=== PATIENT | male | born 1930 | race Caucasian/White ===

== ENCOUNTER 2019-03-07 12:56 | Inpatient (IN) | payer OTHER, MEDICARE ==
[2019-03-07 13:47] LABS: HEMATOCRIT 22.9 % (35.4-49); HEMOGLOBIN 7.5 GM/dL (11.7-16.9); MCH 31.1 pg (25.7-33.7); MCHC 32.6 g/dl (32.0-35.9); MEAN CELL VOLUME 95.3 fl (80-96); MEAN PLT VOLUME 7.8 fl (7.5-11.1); PLATELET COUNT 170 K/MM3 (134-434); RDW 15.8 % (11.9-15.9); WHITE BLOOD COUNT 3.4 K/mm3 (4.0-10.0)
[2019-03-07 14:12] LABS: BLOOD UREA NITROGEN 23.9 mg/dL (7-18); CALCIUM 8.6 mg/dL (8.5-10.1); CREATININE 1.5 mg/dL (0.55-1.3); POTASSIUM 4.2 mmol/L (3.5-5.1)
[2019-03-07] MEDS ORDERED: NITROGLYCERIN SUBLINGUAL 1/150 0.4 MG TAB SL PRN (15:06)
--- NOTE | 2019-03-07 18:43 | HP ---
Admitting History and Physical - Primary Care Physician PCP: Humberto Mcpherson (]) - Admission Chief Complaint: Weakness, LEONARD, anemia History of Present Illness: Pt with known advanced CHF, CRF came to the office c/o weakness and LEONARD with short distances (30 feet); office labs were consistant with anemia (Hb of 7.4); pt was admitted to symptomatic anemia requiring blood transfusion. History Source: Patient Limitations to Obtaining History: No Limitations - Past Medical History Cardiovascular: Yes: CAD, CHF, HTN, Hyperlipdemia Musculoskeletal: Yes: Osteoarthritis - Past Surgical History Past Surgical History: Yes: CABG, Joint Replacement Additional Past Surgical History: s/p Defibrilator/Pacemaker placement. 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 Tonsillectomy - Smoking History Smoking history: Former smoker Have you smoked in the past 12 months: No Aproximately how many cigarettes per day: 0 - Alcohol/Substance Use Hx Alcohol Use: No Home Medications - Allergies Allergies/Adverse Reactions: Allergies Allergy/AdvReac Type Severity Reaction Status Date / Time No Known Drug Allergies Allergy Verified 04/03/14 15:21 - Home Medications Home Medications: Ambulatory Orders Nitroglycerin Sublingual [Nitrostat -] 0.4 mg SL PRN PRN 09/28/12 Rosuvastatin [Crestor -] 40 mg PO HS 09/28/12 Aspirin [ASA -] 81 mg PO DAILY 03/07/19 Carvedilol [Coreg -] 12.5 mg PO BID 03/07/19 Cholecalciferol (Vitamin D3) [Vitamin D3] 2,000 unit PO DAILY 03/07/19 Ezetimibe 10 mg PO Q2D 03/07/19 Isosorbide Mononitrate [Isosorbide Mononitrate ER] 30 mg PO DAILY 03/07/19 Multivitamin [One-Daily Multi-Vitamin] 1 each PO DAILY 03/07/19 Ranolazine [Ranexa -] 1,000 mg PO BID 03/07/19 Sacubitril/Valsartan [Entresto 24 mg-26 mg Tablet] 1 each PO BID 03/07/19 Family Medical History Family Hx Cardiac Disorders: Mother (DM), Father (CHF), Brother (X 2, each with Heart disease.) Review of Systems - Review of Systems Constitutional: denies: Chills, Fever Eyes: denies: Blurred Vision, Double Vision HENT: denies: Epistaxis, Nasal Congestion, Throat Pain Neck: denies: Pain on Movement, Stiffness Cardiovascular: denies: Chest Pain, Edema, Palpitations Respiratory: reports: SOB on Exertion. denies: Cough, Wheezing Gastrointestinal: reports: Vomiting. denies: Abdominal Pain, Nausea Genitourinary: reports: Burning, Discharge Musculoskeletal: reports: Muscle Weakness. denies: Back Pain, Muscle Cramps Integumentary: reports: Rash. denies: Bruising Neurological: reports: Numbness, Tremors. denies: Confusion Endocrine: reports: Intolerance to Cold. denies: Excessive Sweating Hematology/Lymphatic: reports: Excessive Bleeding. denies: Easily Bruised Psychiatric: denies: Anxiety, Depression Physical Examination Vital Signs: Vital Signs Temperature 97.9 F 03/07/19 13:34 Pulse Rate 65 03/07/19 13:34 Respiratory Rate 18 03/07/19 13:34 Blood Pressure 134/72 03/07/19 13:34 O2 Sat by Pulse Oximetry (%) 97 03/07/19 13:59 Constitutional: Yes: No Distress, Calm Eyes: Yes: Conjunctiva Clear, EOM Intact HENT: No: Epistaxis, Pharyngeal Erythema, Rhinnorhea Neck: Yes: Trachea Midline, Lymphadenopathy Cardiovascular: Yes: Regular Rate and Rhythm, S1, S2 Respiratory: Yes: Regular, CTA Bilaterally, Other (Left base atelecatsis, cleared with deep inspiration) Gastrointestinal: Yes: Normal Bowel Sounds, Soft. No: Palpable Mass, Tenderness ...Rectal Exam: Yes: Deferred Renal/: No: CVA Tenderness - Left, CVA Tenderness - Right Musculoskeletal: No: Back Pain, Joint Swelling Extremities: No: Cold, Cyanosis Edema: No Integumentary: Yes: Bruising, Rash Neurological: Yes: Alert, Oriented ...Motor Strength: WNL Psychiatric: Yes: Alert, Oriented Labs: CBC, BMP 03/07/19 13:35 03/07/19 13:35 Problem List - Problems (1) Anemia Code(s): D64.9 - ANEMIA, UNSPECIFIED (2) Leukopenia Code(s): D72.819 - DECREASED WHITE BLOOD CELL COUNT, UNSPECIFIED (3) Dyspnea on effort Code(s): R06.09 - OTHER FORMS OF DYSPNEA (4) CHF (congestive heart failure) Code(s): I50.9 - HEART FAILURE, UNSPECIFIED (5) CRF (chronic renal failure) Code(s): N18.9 - CHRONIC KIDNEY DISEASE, UNSPECIFIED (6) HLD (hyperlipidemia) Code(s): E78.5 - HYPERLIPIDEMIA, UNSPECIFIED Assessment/Plan Transfuse PRBC, slow, to prevent CHF execarbation. Lasix IV s/p PRBC and f/u renal function Cardio consult Heme Consult. AM labs.
--- NOTE | 2019-03-07 20:36 | CONSULT ---
Consult - text type - Consultation Consultation Note: 88 y/o Pt with known advanced CHF, CRF came to the office c/o weakness and LEONARD with short distances (30 feet); Also c/o severe fatifue Denies overt bleeding Last colonoscopy -- 8 yrs. back On asa Getting PRBCs for symptomatic anemia in the 7s - Past Medical History Cardiovascular: Yes: CAD, CHF, HTN, Hyperlipdemia Musculoskeletal: Yes: Osteoarthritis - Past Surgical History Past Surgical History: Yes: CABG, Joint Replacement Additional Past Surgical History: s/p Defibrilator/Pacemaker placement. 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 Tonsillectomy - Smoking History Smoking history: Former smoker - Allergies Allergies/Adverse Reactions: Allergies Allergy/AdvReac Type Severity Reaction Status Date / Time No Known Drug Allergies Allergy Verified 04/03/14 15:21 - Home Medications Home Medications: Ambulatory Orders Nitroglycerin Sublingual [Nitrostat -] 0.4 mg SL PRN PRN 09/28/12 Rosuvastatin [Crestor -] 40 mg PO HS 09/28/12 Aspirin [ASA -] 81 mg PO DAILY 03/07/19 Carvedilol [Coreg -] 12.5 mg PO BID 03/07/19 Cholecalciferol (Vitamin D3) [Vitamin D3] 2,000 unit PO DAILY 03/07/19 Ezetimibe 10 mg PO Q2D 03/07/19 Isosorbide Mononitrate [Isosorbide Mononitrate ER] 30 mg PO DAILY 03/07/19 Multivitamin [One-Daily Multi-Vitamin] 1 each PO DAILY 03/07/19 Ranolazine [Ranexa -] 1,000 mg PO BID 03/07/19 Sacubitril/Valsartan [Entresto 24 mg-26 mg Tablet] 1 each PO BID 03/07/19 Family Medical History Family Hx Cardiac Disorders: Mother (DM), Father (CHF), Brother (X 2, each with Heart disease.) Physical Examination Vital Signs: Last Vital Signs Temp Pulse Resp BP Pulse Ox 98.2 F 80 18 122/81 97 03/07/19 22:00 03/07/19 22:00 03/07/19 22:00 03/07/19 22:00 03/07/19 21:00 Cor: RSR, No murmurs, No gallops Lungs: Clear to P&A Abd: Soft, Normal bowel sounds, No organomegaly Ext:No significant edema Abnormal Lab Results 03/07/19 03/07/19 03/07/19 13:35 13:35 13:35 WBC 3.4 L RBC 2.40 L Hgb 7.5 L Hct 22.9 L Chloride 108 H BUN 23.9 H Creatinine 1.5 H Random Glucose 113 H Antibody Screen Positive H Crossmatch See Detail Assessment/Plan 88 y/o Pt with known advanced CHF, CRF came to the office c/o weakness and LEONARD with short distances (30 feet); Also c/o severe fatigue Denies overt bleeding Last colonoscopy -- 8 yrs. back On asa Getting PRBCs for symptomatic anemia of 7.5 anemia -- B12 /folte /TSH--normal multifactorial--- low iron saturation + chronic disease/CKD/CHF ? component of macrocytosis due to passive congestion from CHF check U/S liver ? marrow pathology -- MDS, given coexistent leukopenia---check flow/FISH/ cytogenetics Given low iron sat --- check ctool occult. Consider GI Consult. Will consider iv iron Leukopenia--passive congestion from CHF? ? marrow pathology Check f/ow/FISH/cytogenetics
[2019-03-07] MEDS ORDERED: PT OWN MED DRAWER 7, Y5N ONE (21:18)
[2019-03-07] MEDS: RANOLAZINE E.R. 1,000 MG TABLET (FP) PO SCH (21:41)
[2019-03-07] MEDS: CARVEDILOL 12.5 MG TABLET (FP) PO SCH (21:41)
[2019-03-07] MEDS ORDERED: ROSUVASTATIN CA 40 MG TABLET PO SCH (22:00)
[2019-03-07] MEDS: ROSUVASTATIN CA 20 MG TABLET (FP) PO SCH (22:18)
[2019-03-07] MEDS: SACUBITRIL/VALSARTAN 24 MG-26 MG TABLET PO SCH (22:19)
[2019-03-07] MEDS ORDERED: FUROSEMIDE 40 MG/4 ML INJECTABLE VIAL IVPB ONE (23:28)
[2019-03-08 06:41] LABS: HEMATOCRIT 24.7 % (35.4-49); HEMOGLOBIN 8.2 GM/dL (11.7-16.9); MCH 31.1 pg (25.7-33.7); MCHC 33.3 g/dl (32.0-35.9); MEAN CELL VOLUME 93.4 fl (80-96); MEAN PLT VOLUME 8.1 fl (7.5-11.1); PLATELET COUNT 152 K/MM3 (134-434); RBC 2.64 M/mm3 (4.00-5.60); RDW 15.4 % (11.9-15.9); WHITE BLOOD COUNT 3.4 K/mm3 (4.0-10.0)
[2019-03-08 07:04] LABS: CALCIUM 8.7 mg/dL (8.5-10.1); CREATININE 1.3 mg/dL (0.55-1.3)
--- NOTE | 2019-03-08 07:19 | PN ---
Progress Note (short form) - Note Progress Note: Chief Complaint: Events noted, notes reviewed, evaluation of progressive exertional dyspnea, increasing fatigue and tiredness History of Present Illness: Seen and examined on telemetry. Full consult dictated - Current Medication List Current Medications Aspirin (Asa -) 81 mg PO DAILY [facility] Carvedilol (Coreg -) 12.5 mg PO BID [facility] Last Admin: 03/07/19 21:41 Dose: 12.5 mg Ezetimibe (Zetia -) 10 mg PO Q2D [facility] Isosorbide Mononitrate (Imdur -) 30 mg PO DAILY [facility] Multivitamins/Minerals/Vitamin C (Tab-A-Vit -) 1 tab PO DAILY [facility] Nitroglycerin (Nitrostat -) 0.4 mg SL Q5M PRN PRN Reason: pain Ranolazine (Ranexa -) 1,000 mg PO BID [facility] Last Admin: 03/07/19 21:41 Dose: 1,000 mg Rosuvastatin Calcium (Crestor -) 40 mg PO HS [facility] Last Admin: 03/07/19 22:18 Dose: 40 mg Sacubitril/Valsartan (Entresto 24 Mg-26 Mg Tablet) 1 tab PO BID [facility] Last Admin: 03/07/19 22:19 Dose: 1 tab Review of Systems Constitutional: denies: Chills or Fever Cardiovascular: as noted above Respiratory: denies: Cough or Sputum Production Gastrointestinal: denies: Nausea, Vomiting, Diarrhea, Constipation or Abdominal Pain Genitourinary: denies: Dysuria Musculoskeletal: denies: Joint Pain Neurological: denies: Dizziness or Headache - Objective Vital Signs: Last Vital Signs Temp Pulse Resp BP Pulse Ox 98.4 F 82 18 119/72 97 03/08/19 06:00 03/08/19 06:00 03/08/19 06:00 03/08/19 06:00 03/07/19 21:00 Intake & Output 03/05/19 03/06/19 03/07/19 03/08/19 23:59 23:59 23:59 23:59 Intake Total 540 Balance 540 Weight 185 lb Neck: Supple Negative JVD No Bruit Respiratory: Clear to A&P Bilaterally Cardiovascular: S1 S2 Regular Rate Rhythm Occasional Ectopics Grade 2/6 systolic apical murmur Gastrointestinal: Soft Benign Normal Bowel Sounds Ext: Edema Labs: CBC, BMP 03/08/19 05:30 03/08/19 05:30 Assessment/Plan ASSESSMENT: 1. 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 Coronary artery disease status post coronary artery bypass grafting status post percutaneous coronary intervention stenting abnormal pharmacologic dipyridamole myocardial perfusion imaging study February 22, 2015 angina pectoris 3. Ventricular tachycardia post [employer], post device revision for pocket infection [employer] device 4. Mitral valve regurgitation mild to moderate in severity 5. Aortic valve regurgitation mild in severity 6. Tricuspid valve regurgitation mild in severity 7. 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 History of an abnormal hemoglobin A1c, normalized 9. Hypercholesterolemia 10. Anemia post-transfusion etiology of which is to be determined with no overt blood loss reported/history of neutropenia- persistent 11. History of traumatic subdural hematoma 12. History of a syncopal episode complicated by traumatic left femoral fracture post open reduction and internal fixation 13. History of traumatic right humeral head fracture post mechanical fall 14. Chronic kidney disease 15. History of degenerative joint disease PLAN: 1. Continue Carvedilol therapy, hemodynamics permitting 2. Continue Entresto therapy, hemodynamics permitting 3. Continue Imdur/hemodynamics permitting and Ranexa therapies 4. Continue Lasix therapy with caution and close monitoring of renal function 5. Continue Crestor and Zetia therapies 6. Continue Ecotrin therapy with caution 7. Evaluation of anemia as planned by hematology service, maintain hemoglobin equal or greater than 8.0, transfuse as needed with Lasix therapy utilization intravenously Nicole Samuels M.D.
[2019-03-08] MEDS ORDERED: PT OWN MED DRAWER 7, Y5N ONE ×4 (09:26→22:09)
[2019-03-08] MEDS: CARVEDILOL 12.5 MG TABLET (FP) PO SCH ×2 (09:33→22:13)
[2019-03-08] MEDS: RANOLAZINE E.R. 1,000 MG TABLET (FP) PO SCH ×2 (09:33→22:13)
[2019-03-08] MEDS: SACUBITRIL/VALSARTAN 24 MG-26 MG TABLET PO SCH ×2 (09:33→22:14)
[2019-03-08] MEDS: MULTIVITAMINS (DAILY MVI) TABLET (FP) PO SCH (09:34)
[2019-03-08] MEDS: ASPIRIN 81 MG CHEWABLE TABLETS PO SCH (09:34)
[2019-03-08] MEDS ORDERED: ISOSORBIDE MONONITRATE 30 MG TAB.SR.24H (FP) PO SCH (10:00)
--- NOTE | 2019-03-08 10:11 | PN ---
Progress Note, Physician - Current Medication List Current Medications: Active Medications Aspirin (Asa -) 81 mg PO DAILY [facility] Last Admin: 03/08/19 09:34 Dose: 81 mg Carvedilol (Coreg -) 12.5 mg PO BID [facility] Last Admin: 03/08/19 09:33 Dose: 12.5 mg Ezetimibe (Zetia -) 10 mg PO Q2D [facility] Isosorbide Mononitrate (Imdur -) 30 mg PO DAILY [facility] Multivitamins/Minerals/Vitamin C (Tab-A-Vit -) 1 tab PO DAILY [facility] Last Admin: 03/08/19 09:34 Dose: 1 tab Nitroglycerin (Nitrostat -) 0.4 mg SL Q5M PRN PRN Reason: pain Ranolazine (Ranexa -) 1,000 mg PO BID [facility] Last Admin: 03/08/19 09:33 Dose: 1,000 mg Rosuvastatin Calcium (Crestor -) 40 mg PO HS [facility] Last Admin: 03/07/19 22:18 Dose: 40 mg Sacubitril/Valsartan (Entresto 24 Mg-26 Mg Tablet) 1 tab PO BID [facility] Last Admin: 03/08/19 09:33 Dose: 1 tab - Objective Vital Signs: Vital Signs Temperature 98.4 F 03/08/19 06:00 Pulse Rate 82 03/08/19 06:00 Respiratory Rate 18 03/08/19 06:00 Blood Pressure 119/72 03/08/19 06:00 O2 Sat by Pulse Oximetry (%) 97 03/07/19 21:00 Labs: CBC, BMP 03/08/19 05:30 03/08/19 05:30 Problem List - Problems (1) Anemia Code(s): D64.9 - ANEMIA, UNSPECIFIED (2) Leukopenia Code(s): D72.819 - DECREASED WHITE BLOOD CELL COUNT, UNSPECIFIED (3) Dyspnea on effort Code(s): R06.09 - OTHER FORMS OF DYSPNEA (4) CHF (congestive heart failure) Code(s): I50.9 - HEART FAILURE, UNSPECIFIED (5) CRF (chronic renal failure) Code(s): N18.9 - CHRONIC KIDNEY DISEASE, UNSPECIFIED (6) HLD (hyperlipidemia) Code(s): E78.5 - HYPERLIPIDEMIA, UNSPECIFIED
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
[2019-03-08] MEDS: ISOSORBIDE MONONITRATE 30 MG TAB.SR.24H (FP) PO SCH (12:53)
[2019-03-08 15:08] VITALS: BMI 25.1
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
--- NOTE | 2019-03-08 15:12 | RAPID ---
Physical Examination Vital Signs: Vital Signs Temperature 98.1 F 03/08/19 13:40 Pulse Rate 61 03/08/19 13:40 Respiratory Rate 18 03/08/19 13:40 Blood Pressure 112/60 03/08/19 13:40 O2 Sat by Pulse Oximetry (%) 97 03/08/19 10:00 Labs: CBC, BMP 03/08/19 05:30 03/08/19 05:30 Rapid Response - Rapid Response Assessment: Rapid Response was called overhead. Rapid Team to Bedside. Patient had a mechanical fall as per interview. Denied any prodromal symptoms of chest pain, lightheadedness, dizziness, palpitations, shortness of breath, nausea, visual disturbances. Acknowledged that he slipped and fell upon exiting the bathroom and hit his head on the garbage can. See Fall Exam note for physical exam. Outcome: Patient to Head CT Patient to get EKG Fall risk precautions initiated Nursing to contact primary Dr. Humberto Mcpherson Recommendations/Interventions: Head CT EKG Fall Risk Precautions
[2019-03-08] MEDS ORDERED: FUROSEMIDE 40 MG/4 ML INJECTABLE VIAL IVPUSH ONE (17:30)
--- NOTE | 2019-03-08 18:32 | PN ---
Progress Note, Physician History of Present Illness: Pt w/o SOB, CP, palpaitations, Abd pain. Pt just finished second unit of PRBC. Events noticed; pt stated that was walking and tripped in the garbage can and fell; he hit his head in the chair (head CT scan was negative for bleed) - Current Medication List Current Medications: Active Medications Aspirin (Asa -) 81 mg PO DAILY [facility] Last Admin: 03/08/19 09:34 Dose: 81 mg Carvedilol (Coreg -) 12.5 mg PO BID [facility] Last Admin: 03/08/19 09:33 Dose: 12.5 mg Ezetimibe (Zetia -) 10 mg PO Q2D [facility] Isosorbide Mononitrate (Imdur -) 30 mg PO DAILY [facility] Last Admin: 03/08/19 12:53 Dose: 30 mg Multivitamins/Minerals/Vitamin C (Tab-A-Vit -) 1 tab PO DAILY [facility] Last Admin: 03/08/19 09:34 Dose: 1 tab Nitroglycerin (Nitrostat -) 0.4 mg SL Q5M PRN PRN Reason: pain Ranolazine (Ranexa -) 1,000 mg PO BID [facility] Last Admin: 03/08/19 09:33 Dose: 1,000 mg Rosuvastatin Calcium (Crestor -) 40 mg PO HS [facility] Last Admin: 03/07/19 22:18 Dose: 40 mg Sacubitril/Valsartan (Entresto 24 Mg-26 Mg Tablet) 1 tab PO BID [facility] Last Admin: 03/08/19 09:33 Dose: 1 tab - Objective Vital Signs: Vital Signs Temperature 97.9 F 03/08/19 17:03 Pulse Rate 64 03/08/19 17:03 Respiratory Rate 20 03/08/19 17:03 Blood Pressure 135/76 03/08/19 17:03 O2 Sat by Pulse Oximetry (%) 97 03/08/19 10:00 Constitutional: Yes: No Distress, Calm Cardiovascular: Yes: Regular Rate and Rhythm, S1, S2 Respiratory: Yes: Regular, CTA Bilaterally, Other (crackels at both bases) Gastrointestinal: Yes: Normal Bowel Sounds, Soft. No: Tenderness Edema: No Neurological: Yes: Alert, Oriented, Other (symmetric motor and sensory examination in UE/ LE/ face) Labs: CBC, BMP 03/08/19 05:30 03/08/19 05:30 Problem List - Problems (1) Anemia Code(s): D64.9 - ANEMIA, UNSPECIFIED Qualifiers: Iron deficiency anemia type: chronic blood loss (2) Leukopenia Code(s): D72.819 - DECREASED WHITE BLOOD CELL COUNT, UNSPECIFIED (3) Dyspnea on effort Code(s): R06.09 - OTHER FORMS OF DYSPNEA (4) CHF (congestive heart failure) Code(s): I50.9 - HEART FAILURE, UNSPECIFIED (5) CRF (chronic renal failure) Code(s): N18.9 - CHRONIC KIDNEY DISEASE, UNSPECIFIED (6) HLD (hyperlipidemia) Code(s): E78.5 - HYPERLIPIDEMIA, UNSPECIFIED Qualifiers: Hyperlipidemia type: pure hypercholesterolemia Qualified Code(s): E78.00 - Pure hypercholesterolemia, unspecified; E78.0 - Pure hypercholesterolemia (7) Fall Assessment/Plan: mechanical. Code(s): W19.XXXA - UNSPECIFIED FALL, INITIAL ENCOUNTER Assessment/Plan s/p 2 units of PRBC Lasix IV s/p PRBC and f/u renal function Cardio and hematology consults are appreciated. Pt's case was d/w Dr Laird. [facility]
--- NOTE | 2019-03-08 19:35 | PN ---
Progress Note (short form) - Note Progress Note: Patient seen and examined Tripped over garbage pail and trauma to right lateral forehead No chest pain or SOB Describes several months of progressive tiredness, fatigue , lightheadedness. Had dark color stools over this time period. On daily ASA-81 mg with occasional Advil for "aches and pains." No gross melena. Lab data on admission with Fe++ sat of 10% compatible with component of blood loss. Mild CKD - compatible with chronic disease . Low WBC with relative normal diff ( relative monocytosis on occasion) dates back to 2015 and 2017. Last colonoscopy years ago. Last Vital Signs Temp Pulse Resp BP Pulse Ox 97.5 F L 66 20 107/66 97 03/08/19 19:03 03/08/19 19:03 03/08/19 19:03 03/08/19 19:03 03/08/19 10:00 HEENT: AZAR, EOM Intact, 2 x2 bandage right lateral forehead Oropharynx: No thrush, No mucositis Neck: Supple Nodes: Without adenopathy Cor: RSR, No murmurs, No gallops Lungs: Clear to P&A Abd: Soft, Normal bowel sounds, No organomegaly testes descended, uncircumcised Ext:No significant edema Skin: No rashes, Integument intact CBC, BMP 03/08/19 05:30 03/08/19 05:30 Current Medications Generic Name Dose Route Start Last Admin Trade Name Freq PRN Reason Stop Dose Admin Aspirin 81 mg 03/08/19 10:00 03/08/19 09:34 Asa - PO 81 mg DAILY [facility] Administration Carvedilol 12.5 mg 03/07/19 22:00 03/08/19 09:33 Coreg - PO 12.5 mg BID [facility] Administration Ezetimibe 10 mg 03/09/19 10:00 Zetia - PO Q2D [facility] Isosorbide Mononitrate 30 mg 03/08/19 13:00 03/08/19 12:53 Imdur - PO 30 mg DAILY [facility] Administration Multivitamins/Minerals/Vitamin C 1 tab 03/08/19 10:00 03/08/19 09:34 Tab-A-Vit - PO 1 tab DAILY [facility] Administration Nitroglycerin 0.4 mg 03/07/19 15:06 Nitrostat - SL Q5M PRN pain Ranolazine 1,000 mg 03/07/19 22:00 03/08/19 09:33 Ranexa - PO 1,000 mg BID [facility] Administration Rosuvastatin Calcium 40 mg 03/07/19 22:00 03/07/19 22:18 Crestor - PO 40 mg HS [facility] Administration Sacubitril/Valsartan 1 tab 03/07/19 22:00 03/08/19 09:33 Entresto 24 Mg-26 Mg Tablet PO 1 tab BID [facility] Administration Impression: Anemia - component of blood loss (10% iron saturation) and likely chronic disease Normal B-12, folate, TSH, normal A/G ratio. Low WBC count dates back to 2016 and 2017 . Last colonoscopy years ago. Suggest: GI assessment Await Flow cytometry to evaluate for possible MDS Sono of liver and spleen ( CHF with passive congestion and secondary liver disease and congested spleen)
[2019-03-08] MEDS: ROSUVASTATIN CA 20 MG TABLET (FP) PO SCH (22:13)
[2019-03-09 06:54] LABS: HEMATOCRIT 25.6 % (35.4-49); HEMOGLOBIN 8.8 GM/dL (11.7-16.9); MCH 30.9 pg (25.7-33.7); MCHC 34.2 g/dl (32.0-35.9); MEAN CELL VOLUME 90.2 fl (80-96); PLATELET COUNT 147 K/MM3 (134-434); RBC 2.84 M/mm3 (4.00-5.60); RDW 16.7 % (11.9-15.9); WHITE BLOOD COUNT 3.9 K/mm3 (4.0-10.0)
[2019-03-09 07:12] LABS: BLOOD UREA NITROGEN 21.9 mg/dL (7-18); CALCIUM 8.6 mg/dL (8.5-10.1); CREATININE 1.2 mg/dL (0.55-1.3); POTASSIUM 3.8 mmol/L (3.5-5.1)
[2019-03-09] MEDS ORDERED: EZETIMIBE 10 MG TABLET (FP) PO SCH (10:00)
[2019-03-09] MEDS ORDERED: POLYETHYLENE GLYCOL 3350 119 GM BTL PO ONE (10:13)
[2019-03-09] MEDS ORDERED: PT OWN MED DRAWER 7, Y5N ONE ×2 (10:29→20:58)
[2019-03-09] MEDS: RANOLAZINE E.R. 1,000 MG TABLET (FP) PO SCH ×2 (10:40→21:50)
[2019-03-09] MEDS: MULTIVITAMINS (DAILY MVI) TABLET (FP) PO SCH (10:40)
[2019-03-09] MEDS: ASPIRIN 81 MG CHEWABLE TABLETS PO SCH (10:40)
[2019-03-09] MEDS: CARVEDILOL 12.5 MG TABLET (FP) PO SCH ×2 (10:40→21:50)
[2019-03-09] MEDS: ISOSORBIDE MONONITRATE 30 MG TAB.SR.24H (FP) PO SCH (10:40)
[2019-03-09] MEDS: SACUBITRIL/VALSARTAN 24 MG-26 MG TABLET PO SCH ×2 (10:40→21:51)
--- NOTE | 2019-03-09 12:27 | PN ---
Progress Note, Physician History of Present Illness: Reports dark stools, denies abdominal pain, tolerated PT with walker assistance w/ improved LEONARD. - Current Medication List Current Medications: Active Medications Aspirin (Asa -) 81 mg PO DAILY [facility] Last Admin: 03/09/19 10:40 Dose: 81 mg Carvedilol (Coreg -) 12.5 mg PO BID [facility] Last Admin: 03/09/19 10:40 Dose: 12.5 mg Ezetimibe (Zetia -) 10 mg PO Q2D [facility] Last Admin: 03/09/19 10:40 Dose: 10 mg Isosorbide Mononitrate (Imdur -) 30 mg PO DAILY [facility] Last Admin: 03/09/19 10:40 Dose: 30 mg Multivitamins/Minerals/Vitamin C (Tab-A-Vit -) 1 tab PO DAILY [facility] Last Admin: 03/09/19 10:40 Dose: 1 tab Nitroglycerin (Nitrostat -) 0.4 mg SL Q5M PRN PRN Reason: pain Ranolazine (Ranexa -) 1,000 mg PO BID [facility] Last Admin: 03/09/19 10:40 Dose: 1,000 mg Rosuvastatin Calcium (Crestor -) 40 mg PO HS [facility] Last Admin: 03/08/19 22:13 Dose: 40 mg Sacubitril/Valsartan (Entresto 24 Mg-26 Mg Tablet) 1 tab PO BID [facility] Last Admin: 03/09/19 10:40 Dose: 1 tab - Objective Vital Signs: Vital Signs Temperature 98.4 F 03/09/19 05:03 Pulse Rate 72 03/09/19 05:03 Respiratory Rate 18 03/09/19 05:03 Blood Pressure 103/62 03/09/19 05:03 O2 Sat by Pulse Oximetry (%) 97 03/08/19 21:00 Constitutional: Yes: No Distress, Calm Neck: Yes: Supple Cardiovascular: Yes: Regular Rate and Rhythm Respiratory: Yes: Regular, CTA Bilaterally Gastrointestinal: Yes: Normal Bowel Sounds, Soft, Melena Edema: No Labs: CBC, BMP 03/09/19 05:30 03/09/19 05:30 Problem List - Problems (1) Anemia Code(s): D64.9 - ANEMIA, UNSPECIFIED Qualifiers: Iron deficiency anemia type: chronic blood loss (2) Dyspnea on effort Code(s): R06.09 - OTHER FORMS OF DYSPNEA (3) Chronic diastolic CHF (congestive heart failure) Code(s): I50.32 - CHRONIC DIASTOLIC (CONGESTIVE) HEART FAILURE (4) Coronary artery disease Code(s): I25.10 - ATHSCL HEART DISEASE OF [place] CORONARY ARTERY W/O ANG PCTRS Qualifiers: Coronary Disease-Associated Artery/Lesion type: [place] artery [place] vs. transplanted heart: [place] heart Associated angina: without angina Qualified Code(s): I25.10 - Atherosclerotic heart disease of [place] coronary artery without angina pectoris (5) Gastrointestinal bleed Code(s): K92.2 - GASTROINTESTINAL HEMORRHAGE, UNSPECIFIED Qualifiers: GI bleed type/associated pathology: melena Qualified Code(s): K92.1 - Melena (6) HLD (hyperlipidemia) Code(s): E78.5 - HYPERLIPIDEMIA, UNSPECIFIED Qualifiers: Hyperlipidemia type: pure hypercholesterolemia Qualified Code(s): E78.00 - Pure hypercholesterolemia, unspecified; E78.0 - Pure hypercholesterolemia (7) Hypertension Code(s): I10 - ESSENTIAL (PRIMARY) HYPERTENSION Qualifiers: Hypertension type: essential hypertension Qualified Code(s): I10 - Essential (primary) hypertension Assessment/Plan Sono of liver and spleen ( CHF with passive congestion and secondary liver disease and congested spleen) 1. 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 Coronary artery disease status post coronary artery bypass grafting status post percutaneous coronary intervention stenting abnormal pharmacologic dipyridamole myocardial perfusion imaging study February 22, 2015 angina pectoris 3. Ventricular tachycardia post [employer]D, post device revision for pocket infection [employer] device 4. Mitral valve regurgitation mild to moderate in severity 5. Aortic valve regurgitation mild in severity 6. Tricuspid valve regurgitation mild in severity 7. 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 History of an abnormal hemoglobin A1c, normalized 9. Hypercholesterolemia 10. Anemia post-transfusion etiology of which is to be determined suspect UGI loss with melena/history of neutropenia- persistent 11. History of traumatic subdural hematoma 12. History of a syncopal episode complicated by traumatic left femoral fracture post open reduction and internal fixation 13. History of traumatic right humeral head fracture post mechanical fall 14. Chronic kidney disease 15. History of degenerative joint disease PLAN: 1. Continue Carvedilol 12.5 bid, hemodynamics permitting 2. Continue Entresto 24/26 bid, hemodynamics permitting 3. Continue Imdur 30 qd hemodynamics permitting and Ranexa 1000 bid 4. Continue Lasix as needed with caution and close monitoring of renal function 5. Continue Crestor 40 qhs and Zetia 10 qod 6. Continue Ecotrin 81 qd with caution 7. Evaluation of anemia as planned by hematology service, maintain hemoglobin equal or greater than 8.0, transfuse as needed with Lasix therapy utilization intravenously, await flow cytometry to evaluate for possible MDS 8. GI input regarding EGD, PPI
--- NOTE | 2019-03-09 12:39 | EKG ---
Test Reason : Blood Pressure : / mmHG Vent. Rate : 067 BPM Atrial Rate : 067 BPM P-R Int : 116 ms QRS Dur : 174 ms QT Int : 528 ms P-R-T Axes : 046 078 070 degrees QTc Int : 557 ms Atrial-sensed ventricular-paced rhythm WITH FREQUENT PREMATURE VENTRICULAR COMPLEXES Biventricular pacemaker detected ABNORMAL ECG WHEN COMPARED WITH ECG OF 05-APR-2014 08:33, PREMATURE VENTRICULAR COMPLEXES ARE NOW PRESENT VENT. RATE HAS DECREASED BY 5 BPM Confirmed by CARA DURHAM, MAGDY ([id number]) on 03/09/2019 12:39:31 PM Referred By: Confirmed By:MAGDY MARROQUIN MD
--- NOTE | 2019-03-09 18:56 | PN ---
Progress Note, Physician History of Present Illness: Pt w/o SOB, CP, palpitations, abd pain, motor or sensory deficit in extremities. - Current Medication List Current Medications: Active Medications Aspirin (Asa -) 81 mg PO DAILY [facility] Last Admin: 03/09/19 10:40 Dose: 81 mg Carvedilol (Coreg -) 12.5 mg PO BID [facility] Last Admin: 03/09/19 10:40 Dose: 12.5 mg Ezetimibe (Zetia -) 10 mg PO Q2D [facility] Last Admin: 03/09/19 10:40 Dose: 10 mg Isosorbide Mononitrate (Imdur -) 30 mg PO DAILY [facility] Last Admin: 03/09/19 10:40 Dose: 30 mg Multivitamins/Minerals/Vitamin C (Tab-A-Vit -) 1 tab PO DAILY [facility] Last Admin: 03/09/19 10:40 Dose: 1 tab Nitroglycerin (Nitrostat -) 0.4 mg SL Q5M PRN PRN Reason: pain Ranolazine (Ranexa -) 1,000 mg PO BID [facility] Last Admin: 03/09/19 10:40 Dose: 1,000 mg Rosuvastatin Calcium (Crestor -) 40 mg PO HS [facility] Last Admin: 03/08/19 22:13 Dose: 40 mg Sacubitril/Valsartan (Entresto 24 Mg-26 Mg Tablet) 1 tab PO BID [facility] Last Admin: 03/09/19 10:40 Dose: 1 tab - Objective Vital Signs: Vital Signs Temperature 97.7 F 03/09/19 18:41 Pulse Rate 64 03/09/19 18:41 Respiratory Rate 20 03/09/19 18:41 Blood Pressure 126/65 03/09/19 18:41 O2 Sat by Pulse Oximetry (%) 97 03/09/19 09:00 Constitutional: Yes: No Distress, Calm HENT: Yes: Other (right temporal area hematoma). No: Epistaxis, Rhinnorhea Cardiovascular: Yes: Regular Rate and Rhythm, S1, S2 Respiratory: Yes: Regular, CTA Bilaterally. No: Rales Gastrointestinal: Yes: Normal Bowel Sounds, Soft. No: Palpable Mass, Tenderness Edema: No Neurological: Yes: Alert, Oriented, Other (symetric examination of UE/ LE/ face) Labs: CBC, BMP 03/09/19 05:30 03/09/19 05:30 Problem List - Problems (1) Anemia Code(s): D64.9 - ANEMIA, UNSPECIFIED Qualifiers: Iron deficiency anemia type: chronic blood loss (2) Leukopenia Code(s): D72.819 - DECREASED WHITE BLOOD CELL COUNT, UNSPECIFIED (3) Dyspnea on effort Code(s): R06.09 - OTHER FORMS OF DYSPNEA (4) CHF (congestive heart failure) Code(s): I50.9 - HEART FAILURE, UNSPECIFIED (5) CRF (chronic renal failure) Code(s): N18.9 - CHRONIC KIDNEY DISEASE, UNSPECIFIED (6) HLD (hyperlipidemia) Code(s): E78.5 - HYPERLIPIDEMIA, UNSPECIFIED Qualifiers: Hyperlipidemia type: pure hypercholesterolemia Qualified Code(s): E78.00 - Pure hypercholesterolemia, unspecified; E78.0 - Pure hypercholesterolemia Assessment/Plan s/p 2 units of PRBC, tolerated well Cardio and Hematology consults are appreciated. Pt to receive IV iron Liver and spleen US. Pt might decline GI evaluation/ workup this admission (importance was reviewed with patient) AM labs.
[2019-03-09] MEDS: ROSUVASTATIN CA 20 MG TABLET (FP) PO SCH (21:51)
[2019-03-10 07:12] LABS: HEMATOCRIT 27.9 % (35.4-49); HEMOGLOBIN 9.5 GM/dL (11.7-16.9); MCH 30.8 pg (25.7-33.7); MCHC 34.1 g/dl (32.0-35.9); MEAN CELL VOLUME 90.6 fl (80-96); PLATELET COUNT 182 K/MM3 (134-434); RBC 3.08 M/mm3 (4.00-5.60); RDW 16.5 % (11.9-15.9); WHITE BLOOD COUNT 4.3 K/mm3 (4.0-10.0)
[2019-03-10 07:47] LABS: BLOOD UREA NITROGEN 21.3 mg/dL (7-18); CALCIUM 8.6 mg/dL (8.5-10.1); CREATININE 1.4 mg/dL (0.55-1.3); POTASSIUM 4.2 mmol/L (3.5-5.1)
--- NOTE | 2019-03-10 10:32 | PN ---
Progress Note, Physician History of Present Illness: No further dark stools, denies abdominal pain, tolerated PT with walker assistance w/ improved LEONARD. Hgb stable post transfusion. - Current Medication List Current Medications: Active Medications Aspirin (Asa -) 81 mg PO DAILY [facility] Last Admin: 03/09/19 10:40 Dose: 81 mg Carvedilol (Coreg -) 12.5 mg PO BID [facility] Last Admin: 03/09/19 21:50 Dose: 12.5 mg Ezetimibe (Zetia -) 10 mg PO Q2D [facility] Last Admin: 03/09/19 10:40 Dose: 10 mg Isosorbide Mononitrate (Imdur -) 30 mg PO DAILY [facility] Last Admin: 03/09/19 10:40 Dose: 30 mg Multivitamins/Minerals/Vitamin C (Tab-A-Vit -) 1 tab PO DAILY [facility] Last Admin: 03/09/19 10:40 Dose: 1 tab Nitroglycerin (Nitrostat -) 0.4 mg SL Q5M PRN PRN Reason: pain Ranolazine (Ranexa -) 1,000 mg PO BID [facility] Last Admin: 03/09/19 21:50 Dose: 1,000 mg Rosuvastatin Calcium (Crestor -) 40 mg PO HS [facility] Last Admin: 03/09/19 21:51 Dose: 40 mg Sacubitril/Valsartan (Entresto 24 Mg-26 Mg Tablet) 1 tab PO BID [facility] Last Admin: 03/09/19 21:51 Dose: 1 tab - Objective Vital Signs: Vital Signs Temperature 98.1 F 03/10/19 06:00 Pulse Rate 78 03/10/19 06:00 Respiratory Rate 20 03/10/19 06:00 Blood Pressure 107/51 L 03/10/19 06:00 O2 Sat by Pulse Oximetry (%) 99 03/09/19 21:00 Constitutional: Yes: No Distress, Calm Neck: Yes: Supple Cardiovascular: Yes: Regular Rate and Rhythm Respiratory: Yes: Regular, CTA Bilaterally Gastrointestinal: Yes: Normal Bowel Sounds, Soft Edema: No Labs: CBC, BMP 03/10/19 05:35 03/10/19 05:35 Problem List - Problems (1) Anemia Code(s): D64.9 - ANEMIA, UNSPECIFIED Qualifiers: Iron deficiency anemia type: chronic blood loss (2) Dyspnea on effort Code(s): R06.09 - OTHER FORMS OF DYSPNEA (3) Chronic diastolic CHF (congestive heart failure) Code(s): I50.32 - CHRONIC DIASTOLIC (CONGESTIVE) HEART FAILURE (4) Coronary artery disease Code(s): I25.10 - ATHSCL HEART DISEASE OF [place] CORONARY ARTERY W/O ANG PCTRS Qualifiers: Coronary Disease-Associated Artery/Lesion type: [place] artery [place] vs. transplanted heart: [place] heart Associated angina: without angina Qualified Code(s): I25.10 - Atherosclerotic heart disease of [place] coronary artery without angina pectoris (5) Gastrointestinal bleed Code(s): K92.2 - GASTROINTESTINAL HEMORRHAGE, UNSPECIFIED Qualifiers: GI bleed type/associated pathology: melena Qualified Code(s): K92.1 - Melena (6) HLD (hyperlipidemia) Code(s): E78.5 - HYPERLIPIDEMIA, UNSPECIFIED Qualifiers: Hyperlipidemia type: pure hypercholesterolemia Qualified Code(s): E78.00 - Pure hypercholesterolemia, unspecified; E78.0 - Pure hypercholesterolemia (7) Hypertension Code(s): I10 - ESSENTIAL (PRIMARY) HYPERTENSION Qualifiers: Hypertension type: essential hypertension Qualified Code(s): I10 - Essential (primary) hypertension Assessment/Plan 03/09/2019 Mildly distended GB with multiple calculi 1. 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 Coronary artery disease status post coronary artery bypass grafting status post percutaneous coronary intervention stenting abnormal pharmacologic dipyridamole myocardial perfusion imaging study February 22, 2015 angina pectoris 3. Ventricular tachycardia post [employer]D, post device revision for pocket infection [employer] device 4. Mitral valve regurgitation mild to moderate in severity 5. Aortic valve regurgitation mild in severity 6. Tricuspid valve regurgitation mild in severity 7. 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 History of an abnormal hemoglobin A1c, normalized 9. Hypercholesterolemia 10. Anemia post 2 u PRBC transfusion etiology of which is to be determined suspect UGI loss with melena/history of neutropenia- persistent 11. History of traumatic subdural hematoma 12. History of a syncopal episode complicated by traumatic left femoral fracture post open reduction and internal fixation 13. History of traumatic right humeral head fracture post mechanical fall 14. Chronic kidney disease 15. History of degenerative joint disease 16. Cholelithiasis w/o cholecystitis PLAN: 1. Continue Carvedilol 12.5 bid, hemodynamics permitting 2. Continue Entresto 24/26 bid, hemodynamics permitting 3. Continue Imdur 30 qd hemodynamics permitting and Ranexa 1000 bid 4. Continue Lasix as needed with caution and close monitoring of renal function 5. Continue Crestor 40 qhs and Zetia 10 qod 6. Continue Ecotrin 81 qd with caution 7. Evaluation of anemia as planned by hematology service, maintain hemoglobin equal or greater than 8.0, transfuse as needed with Lasix therapy utilization intravenously, await flow cytometry to evaluate for possible MDS, IV iron 8. GI input regarding EGD, PPI
[2019-03-10] MEDS: CARVEDILOL 12.5 MG TABLET (FP) PO SCH (10:52)
[2019-03-10] MEDS: ASPIRIN 81 MG CHEWABLE TABLETS PO SCH (10:53)
[2019-03-10] MEDS: RANOLAZINE E.R. 1,000 MG TABLET (FP) PO SCH (10:53)
[2019-03-10] MEDS: SACUBITRIL/VALSARTAN 24 MG-26 MG TABLET PO SCH (10:53)
[2019-03-10] MEDS: MULTIVITAMINS (DAILY MVI) TABLET (FP) PO SCH (10:53)
[2019-03-10] MEDS: ISOSORBIDE MONONITRATE 30 MG TAB.SR.24H (FP) PO SCH (10:53)
[2019-03-10] MEDS ORDERED: IRON SUCROSE INJECTION 200 MG in SODIUM CHLORIDE 90 ML IVPB ONE (14:45)
--- NOTE | 2019-03-10 14:58 | DS ---
Physical Examination Vital Signs: Vital Signs Temperature 98.1 F 03/10/19 10:56 Pulse Rate 55 L 03/10/19 10:56 Respiratory Rate 18 03/10/19 10:56 Blood Pressure 103/51 L 03/10/19 10:56 O2 Sat by Pulse Oximetry (%) 98 03/10/19 09:00 Findings/Remarks: Pt w/o headache, SOB, CP, palpitations, abd pain. Constitutional: Yes: No Distress, Calm Cardiovascular: Yes: Regular Rate and Rhythm, S1, S2 Respiratory: Yes: Regular, CTA Bilaterally, Other (nocrackles). No: Rales Gastrointestinal: Yes: Normal Bowel Sounds, Soft. No: Tenderness Edema: LLE: Trace, RLE: Trace Neurological: Yes: Alert, Oriented Labs: CBC, BMP 03/10/19 05:35 03/10/19 05:35 Discharge Summary Reason For Visit: ANEMIA CHF WEAKNESS Current Active Problems Anemia (Acute) CHF (congestive heart failure) (Acute) CRF (chronic renal failure) (Acute) Dyspnea on effort (Acute) Fall (Acute) Leukopenia (Acute) Procedures: Principal: PRBC transfudsion ( X 2 units). IV iron infusion. Hospital Course: Pt with known CAD, s/p CABG, CHF came to Hospital after was found to have anemia (Hb7.4), LEONARD, weakness. Pt received 2 units of PRBC, and IV Lasix. Pt was seen in consult by Cardio (Dr Scott/ Geraldo), Heme (Dr Laird/ Anh); pt was recommended to see GI for further of Iron deficiency anemia; pt received IV Iron (Venofer 200 mg); pt to be DC'ed home with f/u with Heme (needs to continue IV Iron infusion), GI. Condition: Improved - Instructions Diet, Activity, Other Instructions: Resume home diet Disposition: HOME - Home Medications Comprehensive Discharge Medication List: Ambulatory Orders RX: Nitroglycerin Sublingual [Nitrostat -] 0.4 mg SL PRN PRN 09/28/12 RX: Rosuvastatin [Crestor -] 40 mg PO HS 09/28/12 Aspirin [ASA -] 81 mg PO DAILY 03/07/19 Carvedilol [Coreg -] 12.5 mg PO BID 03/07/19 Cholecalciferol (Vitamin D3) [Vitamin D3] 2,000 unit PO DAILY 03/07/19 Isosorbide Mononitrate [Isosorbide Mononitrate ER] 30 mg PO DAILY 03/07/19 Multivitamin [One-Daily Multi-Vitamin] 1 each PO DAILY 03/07/19 RX: Ezetimibe 10 mg PO Q2D 03/07/19 Ranolazine [Ranexa -] 1,000 mg PO BID 03/07/19 Sacubitril/Valsartan [Entresto 24 mg-26 mg Tablet] 1 each PO BID 03/07/19
[2019-03-10] MEDS ORDERED: PT OWN MED DRAWER 7, Y5N ONE (15:06)
--- NOTE | 2019-03-10 18:34 | PN ---
Progress Note (short form) - Note Progress Note: PAtient being discharged. Received iv venofer 200mg . Feels improved endurance Discussed lab results/U/S findings To follow up in the office regarding flocytometry and continuation of venofer
[2019-03-10 18:36] VITALS: BP 127/56; PULSE 61; TEMP 97.8
--- NOTE | 2019-03-11 17:26 | PATH ---
Surgical Pathology Report Patient Name: GEOVANNI FINE [facility]. Rec. #: [id number] /Age/Gender: 1930 (Age: 88) / M Account: [id number] Location: [address] [place] [address]/[facility] Taken: 03/08/2019 Received: 03/08/2019 Reported: 03/11/2019 Physicians: Anh Allen M.D. Specimen(s) Received PERIPHERAL BLOOD Clinical History Leukopenia Final Diagnosis COMPREHENSIVE FLOW CYTOMETRY performed and interpreted at [place], [place] ([id number]) INTERPRETATION: In the sample analyzed, there is no evidence of B or T-cell proliferative disorders or increased blasts. MYELODYSPLASIA FISH PANEL performed and interpreted at [facility] [place], [place] ([id number]) shows the following: INTERPRETATION: No evidence of deletion 5q or monosomy 5 is present. No evidence of deletion 7q or monosomy 7 is present. No evidence of trisomy 8 (+8) is present. No evidence of deletion 13q14.2 is present. No evidence of a rearrangement of 11q23. No evidence of a deletion of the p53 (17p13) locus. No evidence of deletion 20q12 is present. Comments: Cytogenetics pending, findings will be reported separately. See [facility] reports for additional details. Electronically Signed Ashley Baltazar M.D. Amendments Amended: 03/11/2019 Previous Signout Date: 03/11/2019 Comment: Add gross description. Diagnosis remains unchanged. Addendum Reported: 03/14/2019 Addendum Diagnosis CYTOGENETIC KARYOTYPE ANALYSIS performed and interpreted at [facility] [place] ([id number]) shows the following: RESULTS: Tissue Culture Failure INTERPRETATION: This unstimulated peripheral blood specimen did not produce any analyzable metaphase cells and, therefore, chromosome analysis is not possible. A bone marrow aspirate, when clinically appropriate, is recommended. See [facility] report for additional details. Ashley Baltazar M.D. Gross Description Received labelled with the patient's name are two green top tubes of peripheral blood which are forwarded to [facility] for ancillary testing.
== END 2019-03-10 18:45 | disposition home or self-care (01) | DRG 812 ==
LOC: J4S 12:56 → UNDOADMIN 12:56 → J4S 13:00
PROVIDERS: ADMIT Internal Medicine; ATTEND Internal Medicine
PROC: 30233N1 Transfusion of Nonautologous Red Blood Cells into Peripheral Vein, Percutaneous Approach (ICD-10-PCS; principal; 2019-03-07)
DX: D64.9 Anemia, unspecified (principal); I13.0 Hypertensive heart and chronic kidney disease with heart failure and stage 1 through stage 4 chronic kidney disease, or unspecified chronic kidney disease; I50.32 Chronic diastolic (congestive) heart failure; I50.9 Heart failure, unspecified; E78.5 Hyperlipidemia, unspecified; I25.10 Atherosclerotic heart disease of native coronary artery without angina pectoris; D72.819 Decreased white blood cell count, unspecified; Z95.1 Presence of aortocoronary bypass graft; N18.9 Chronic kidney disease, unspecified
CPT/HCPCS: 36415; 36430; 36511; 70450-TC; 76700-TC; 80048; 80053; 81003; 81015; 82272; 82306; 82607; 82728; 82746; 83540; 83550; 84439; 84443; 84481; 85025; 85027; 85044; 85651; 86038; 86140; 86850; 86870; 86900; 86901; 86902; 86922; 88300-TC; 93005; 93010; 97116-GP; 97161-GP; J1756; P9038; P9058

== ENCOUNTER 2019-04-05 14:30 | Day surgery (SDC) | payer OTHER, MEDICARE ==
[2019-04-05] MEDS ORDERED: CYANOCOBALAMIN (VITAMIN B-12) 1000 MCG/1 ML VIAL IM ONE (16:00)
[2019-04-05] MEDS ORDERED: ACETAMINOPHEN 325 MG TABLET (FP) PO ONE (16:00)
[2019-04-05] MEDS ORDERED: IRON SUCROSE INJECTION 200 MG in SODIUM CHLORIDE 100 ML IVPB ONE (16:00)
[2019-04-05 16:12] LABS: RETICULOCYTES 0.73 % (0.5-1.5)
[2019-04-05 16:33] LABS: ALBUMIN 3.5 g/dl (3.4-5.0); BILIRUBIN,TOTAL 0.6 mg/dL (0.2-1); BLOOD UREA NITROGEN 24.3 mg/dL (7-18); CALCIUM 9.1 mg/dL (8.5-10.1); CREATININE 1.3 mg/dL (0.55-1.3); POTASSIUM 4.4 mmol/L (3.5-5.1); TOT PROT 6.9 g/dl (6.4-8.2)
[2019-04-05 17:15] VITALS: TEMP 97.7
[2019-04-05 17:26] VITALS: BP 140/56; PULSE 63
[2019-04-05 18:04] LABS: BASO % 0.7 % (0-2.0); HEMATOCRIT 24.7 % (35.4-49); LYMPH % 23.7 % (8-40); MCH 30.8 pg (25.7-33.7); MCHC 32.5 g/dl (32.0-35.9); MEAN CELL VOLUME 94.7 fl (80-96); MONO % 13.2 % (3.8-10.2); NEUT % 61.4 % (42.8-82.8); PLATELET COUNT 175 K/MM3 (134-434); RBC 2.61 M/mm3 (4.00-5.60); RDW 17.6 % (11.9-15.9); WHITE BLOOD COUNT 2.6 K/mm3 (4.0-10.0)
== END 2019-04-05 17:00 | disposition home or self-care (01) ==
LOC: JONCNONCHE 14:30 → J7W 15:01 → JONCNONCHE 17:00
PROVIDERS: ATTEND Internal Medicine Hematology & Oncology
PROC: 3E033GC Introduction of Other Therapeutic Substance into Peripheral Vein, Percutaneous Approach (ICD-10-PCS; principal; 2019-04-05)
DX: D50.9 Iron deficiency anemia, unspecified (principal)
CPT/HCPCS: 36415; 80053; 82728; 83516; 83540; 83550; 83615; 85025; 85032; 85044; 86340; 96365; J1756

== ENCOUNTER 2019-04-14 06:57 | Day surgery (SDC) | payer OTHER, MEDICARE ==
[2019-04-14 08:25] LABS: BASO % 0.6 % (0-2.0); EOS % 1.2 % (0-4.5); HEMOGLOBIN 8.1 GM/dL (11.7-16.9); LYMPH % 23.3 % (8-40); MCH 31.3 pg (25.7-33.7); MCHC 32.5 g/dl (32.0-35.9); MEAN CELL VOLUME 96.3 fl (80-96); MEAN PLT VOLUME 7.6 fl (7.5-11.1); MONO % 10.6 % (3.8-10.2); NEUT % 64.3 % (42.8-82.8); PLATELET COUNT 194 K/MM3 (134-434); RBC 2.59 M/mm3 (4.00-5.60); RDW 18.7 % (11.9-15.9); WHITE BLOOD COUNT 3.1 K/mm3 (4.0-10.0)
[2019-04-14 09:02] LABS: ALBUMIN 3.6 g/dl (3.4-5.0); BILIRUBIN,TOTAL 0.6 mg/dL (0.2-1); BLOOD UREA NITROGEN 22.7 mg/dL (7-18); CALCIUM 9.1 mg/dL (8.5-10.1); CREATININE 1.3 mg/dL (0.55-1.3); MAGNESIUM 2.4 mg/dL (1.8-2.4); POTASSIUM 4.5 mmol/L (3.5-5.1); TOT PROT 7.2 g/dl (6.4-8.2)
[2019-04-14 09:27] VITALS: TEMP 98.1
[2019-04-14] MEDS ORDERED: FUROSEMIDE 40 MG TABLET (FP) PO SCH (09:30)
[2019-04-14] MEDS ORDERED: POTASSIUM CHLORIDE TABS 20 MEQ TABLET.ER (FP) PO SCH (09:30)
[2019-04-14] MEDS ORDERED: ACETAMINOPHEN 325 MG TABLET (FP) PO ONE (09:45)
[2019-04-14] MEDS ORDERED: CYANOCOBALAMIN (VITAMIN B-12) 1000 MCG/1 ML VIAL IM ONE (10:00)
[2019-04-14] MEDS ORDERED: IRON SUCROSE INJECTION 200 MG in SODIUM CHLORIDE 100 ML IVPB ONE (10:00)
[2019-04-14 18:48] VITALS: BP 134/62; PULSE 66
[2019-04-14 20:09] LABS: BASO % 0.6 % (0-2.0); EOS % 1.1 % (0-4.5); HEMATOCRIT 25.1 % (35.4-49); HEMOGLOBIN 8.2 GM/dL (11.7-16.9); LYMPH % 25.4 % (8-40); MCH 30.1 pg (25.7-33.7); MCHC 32.5 g/dl (32.0-35.9); MEAN CELL VOLUME 92.7 fl (80-96); MEAN PLT VOLUME 7.9 fl (7.5-11.1); MONO % 14.2 % (3.8-10.2); NEUT % 58.7 % (42.8-82.8); PLATELET COUNT 150 K/MM3 (134-434); RBC 2.71 M/mm3 (4.00-5.60); RDW 19.1 % (11.9-15.9); WHITE BLOOD COUNT 2.5 K/mm3 (4.0-10.0)
== END 2019-04-14 19:15 | disposition home or self-care (01) ==
LOC: JONCNONCHE 06:57 → J7W 07:58 → JONCNONCHE 19:15
PROVIDERS: ATTEND Internal Medicine Hematology & Oncology
PROC: 3E033GC Introduction of Other Therapeutic Substance into Peripheral Vein, Percutaneous Approach (ICD-10-PCS; principal; 2019-04-14)
DX: D50.9 Iron deficiency anemia, unspecified (principal)
CPT/HCPCS: 36415; 36430; 36511; 80053; 83735; 85025; 86850; 86870; 86900; 86901; 86902; 86922; 96365; J1756; P9038; P9058

== ENCOUNTER 2019-04-21 07:04 | Day surgery (SDC) | payer OTHER, MEDICARE ==
[2019-04-21] MEDS ORDERED: CYANOCOBALAMIN (VITAMIN B-12) 1000 MCG/1 ML VIAL IM ONE (10:45)
[2019-04-21] MEDS ORDERED: IRON SUCROSE INJECTION 200 MG in SODIUM CHLORIDE 100 ML IVPB ONE (11:00)
[2019-04-21] MEDS ORDERED: ACETAMINOPHEN 325 MG TABLET (FP) ONE (12:09)
[2019-04-21] MEDS ORDERED: ACETAMINOPHEN 325 MG TABLET (FP) PO ONE (12:15)
[2019-04-21 12:45] VITALS: BP 104/42; PULSE 50; TEMP 98.1
== END 2019-04-21 12:00 | disposition home or self-care (01) ==
LOC: JONCNONCHE 07:04 → J7W 10:13 → JONCNONCHE 12:00
PROVIDERS: ATTEND Internal Medicine Hematology & Oncology
PROC: 3E033GC Introduction of Other Therapeutic Substance into Peripheral Vein, Percutaneous Approach (ICD-10-PCS; principal; 2019-04-21)
DX: D50.9 Iron deficiency anemia, unspecified (principal)
CPT/HCPCS: 96365; 96372; J1756

== ENCOUNTER 2019-04-22 08:01 | Observation (INO) | payer OTHER, MEDICARE ==
[2019-04-22 08:38] VITALS: BMI 24.8
[2019-04-22 09:00] LABS: HEMATOCRIT 30.1 % (35.4-49); HEMOGLOBIN 9.9 GM/dL (11.7-16.9); MCH 30.7 pg (25.7-33.7); MCHC 32.8 g/dl (32.0-35.9); MEAN CELL VOLUME 93.6 fl (80-96); MEAN PLT VOLUME 7.5 fl (7.5-11.1); PLATELET COUNT 187 K/MM3 (134-434); RBC 3.22 M/mm3 (4.00-5.60); RDW 19.2 % (11.9-15.9); WHITE BLOOD COUNT 2.6 K/mm3 (4.0-10.0)
[2019-04-22 09:20] LABS: BLOOD UREA NITROGEN 16.4 mg/dL (7-18); CREATININE 1.2 mg/dL (0.55-1.3)
[2019-04-22] MEDS ORDERED: EPINEPHrine 1:10,000 (P-F SYR) 1 MG/10 ML DISP.SYRIN IVPUSH ONE (10:15)
[2019-04-22] MEDS ORDERED: EPINEPHrine 1:10,000 (P-F SYR) 1 MG/10 ML DISP.SYRIN ONE (10:56)
[2019-04-22] MEDS ORDERED: NITROGLYCERIN SUBLINGUAL 1/200 0.3 MG BTL SL PRN (14:31)
[2019-04-22] MEDS: PANTOPRAZOLE 40 MG TABLET PO SCH (19:36)
[2019-04-22] MEDS ORDERED: PT OWN MED DRAWER 7, Y5N ONE (21:31)
[2019-04-22] MEDS: SACUBITRIL/VALSARTAN 24 MG-26 MG TABLET PO SCH (21:37)
[2019-04-22] MEDS: ROSUVASTATIN CA 20 MG TABLET (FP) PO SCH (21:37)
[2019-04-22] MEDS: CARVEDILOL 12.5 MG TABLET (FP) PO SCH (21:37)
[2019-04-22] MEDS: RANOLAZINE E.R. 500 MG TABLET (FP) PO SCH (21:38)
--- NOTE | 2019-04-22 21:53 | HP ---
Admitting History and Physical - Primary Care Physician PCP: Humberto Mcpherson - Admission Chief Complaint: Anemia. UGI History of Present Illness: Pt with PMHx/o symptomatic anemia, CAD, CABG, CHF, s/p several recent PRBC transfusions and IV Iron infusions, today had EGD and was noticed to have a gastric bleeding area that needed epinephrine injection and clipping to stop the bleeding. Pt is admitted for monitoring of bleeding. History Source: Patient, Significant Other (Dr Hermilo Medina.) - Past Medical History Cardiovascular: Yes: CAD, CHF, HTN, Hyperlipdemia Musculoskeletal: Yes: Osteoarthritis - Past Surgical History Past Surgical History: Yes: CABG, Joint Replacement - Smoking History Smoking history: Former smoker Have you smoked in the past 12 months: No Aproximately how many cigarettes per day: 0 - Alcohol/Substance Use Hx Alcohol Use: No Home Medications - Allergies Allergies/Adverse Reactions: Allergies Allergy/AdvReac Type Severity Reaction Status Date / Time No Known Drug Allergies Allergy Verified 04/03/14 15:21 - Home Medications Home Medications: Ambulatory Orders Nitroglycerin Sublingual [Nitrostat -] 0.4 mg SL PRN PRN 09/28/12 Rosuvastatin [Crestor -] 40 mg PO HS 09/28/12 Aspirin [ASA -] 81 mg PO DAILY 03/07/19 Carvedilol [Coreg -] 12.5 mg PO BID 03/07/19 Cholecalciferol (Vitamin D3) [Vitamin D3] 2,000 unit PO DAILY 03/07/19 Ezetimibe 10 mg PO Q2D 03/07/19 Isosorbide Mononitrate [Isosorbide Mononitrate ER] 30 mg PO DAILY 03/07/19 Multivitamin [One-Daily Multi-Vitamin] 1 each PO DAILY 03/07/19 Ranolazine [Ranexa -] 1,000 mg PO BID 03/07/19 Sacubitril/Valsartan [Entresto 24 mg-26 mg Tablet] 1 each PO BID 03/07/19 Review of Systems - Review of Systems Constitutional: denies: Chills, Fever Eyes: denies: Blurred Vision, Double Vision HENT: denies: Nasal Congestion, Throat Pain Neck: denies: Decreased ROM, Stiffness Cardiovascular: denies: Chest Pain, Edema, Palpitations Respiratory: denies: Cough, Wheezing Gastrointestinal: denies: Abdominal Pain, Nausea, Vomiting Genitourinary: denies: Burning, Discharge Musculoskeletal: denies: Back Pain, Extremity Pain Integumentary: denies: Bruising, Eczema Neurological: reports: Unsteady Gait. denies: Change in LOC, Change in Speech Endocrine: denies: Intolerance to Cold, Intolerance to Heat Hematology/Lymphatic: denies: Easily Bruised, Excessive Bleeding Psychiatric: denies: Anxiety, Depression Physical Examination Vital Signs: Vital Signs Temperature 99.4 F 04/22/19 21:35 Pulse Rate 88 04/22/19 21:35 Respiratory Rate 18 04/22/19 21:35 Blood Pressure 127/86 04/22/19 21:35 O2 Sat by Pulse Oximetry (%) 100 04/22/19 14:30 Constitutional: Yes: No Distress, Calm Cardiovascular: Yes: Regular Rate and Rhythm, S1, S2 Respiratory: Yes: Regular. No: Rales Gastrointestinal: No: Normal Bowel Sounds, Soft, Hepatomegaly, Palpable Mass ...Rectal Exam: Yes: Deferred Renal/: No: CVA Tenderness - Left, CVA Tenderness - Right Musculoskeletal: No: Back Pain, Joint Swelling Edema: LLE: Trace, RLE: Trace Integumentary: No: Jaundice, Rash Neurological: Yes: Alert, Oriented, Other (groslly sensory and motor examiantion s symmetric in UE/LE) Psychiatric: Yes: Alert, Oriented Labs: CBC, BMP 04/22/19 08:09 04/22/19 08:09 Problem List - Problems (1) Gastrointestinal bleed Code(s): K92.2 - GASTROINTESTINAL HEMORRHAGE, UNSPECIFIED Qualifiers: GI bleed type/associated pathology: melena Qualified Code(s): K92.1 - Melena (2) Anemia Code(s): D64.9 - ANEMIA, UNSPECIFIED Qualifiers: Iron deficiency anemia type: chronic blood loss (3) Hx of CABG Code(s): Z95.1 - PRESENCE OF AORTOCORONARY BYPASS GRAFT (4) CHF (congestive heart failure) Code(s): I50.9 - HEART FAILURE, UNSPECIFIED (5) CRF (chronic renal failure) Code(s): N18.9 - CHRONIC KIDNEY DISEASE, UNSPECIFIED (6) Coronary artery disease Code(s): I25.10 - ATHSCL HEART DISEASE OF [place] CORONARY ARTERY W/O ANG PCTRS Qualifiers: Coronary Disease-Associated Artery/Lesion type: [place] artery [place] vs. transplanted heart: [place] heart Associated angina: without angina Qualified Code(s): I25.10 - Atherosclerotic heart disease of [place] coronary artery without angina pectoris Assessment/Plan S/p EGD and colonoscopy today. Pt findings were reviewed with Dr Hermilo Medina. Clear liquid diet. ASA on hold TO monitor H/H in AM
[2019-04-23 09:19] LABS: BASO % 0.5 % (0-2.0); EOS % 0.8 % (0-4.5); HEMATOCRIT 26.2 % (35.4-49); HEMOGLOBIN 8.7 GM/dL (11.7-16.9); LYMPH % 22.1 % (8-40); MCH 30.9 pg (25.7-33.7); MCHC 33.2 g/dl (32.0-35.9); MEAN PLT VOLUME 7.8 fl (7.5-11.1); MONO % 14.3 % (3.8-10.2); NEUT % 62.3 % (42.8-82.8); PLATELET COUNT 158 K/MM3 (134-434); RBC 2.82 M/mm3 (4.00-5.60); RDW 19.3 % (11.9-15.9)
[2019-04-23 09:46] LABS: BLOOD UREA NITROGEN 13.9 mg/dL (7-18); CALCIUM 8.8 mg/dL (8.5-10.1); CREATININE 1.1 mg/dL (0.55-1.3); POTASSIUM 3.8 mmol/L (3.5-5.1)
[2019-04-23] MEDS ORDERED: ASPIRIN 81 MG CHEWABLE TABLETS PO SCH (10:00)
[2019-04-23] MEDS: CARVEDILOL 12.5 MG TABLET (FP) PO SCH ×2 (10:10→22:44)
[2019-04-23] MEDS: PANTOPRAZOLE 40 MG TABLET PO SCH (10:10)
[2019-04-23] MEDS: RANOLAZINE E.R. 500 MG TABLET (FP) PO SCH ×2 (10:10→22:45)
[2019-04-23] MEDS: ISOSORBIDE MONONITRATE 30 MG TAB.SR.24H (FP) PO SCH (10:10)
[2019-04-23] MEDS: MULTIVITAMINS (DAILY MVI) TABLET (FP) PO SCH (10:10)
[2019-04-23] MEDS: SACUBITRIL/VALSARTAN 24 MG-26 MG TABLET PO SCH ×2 (10:11→22:44)
--- NOTE | 2019-04-23 10:13 | PN.GI ---
GI Progress Note Subjective: No abdominal pain No BM, BRBPR, Melena Mr. Arriaga states feeling well Hgb 8.7 this morning - Objective Vital Signs: Vital Signs Temperature 98.2 F 04/23/19 06:00 Pulse Rate 82 04/23/19 06:00 Respiratory Rate 18 04/23/19 06:00 Blood Pressure 125/54 L 04/23/19 06:00 O2 Sat by Pulse Oximetry (%) 99 04/23/19 06:00 Constitutional: Calm Cardiovascular: Yes: Regular Rate and Rhythm Respiratory: Yes: CTA Bilaterally Gastrointestinal Inspection: No: Distention ...Auscultate: Yes: Normoactive Bowel Sounds ...Palpate: Yes: Soft ...Percussion: No: Tympanitic Neurological: Yes: Alert Labs: CBC, BMP 04/23/19 08:18 04/23/19 08:18 Problem List - Problems (1) Anemia Assessment/Plan: Remains hemodynamically stable without overt bleeding overnight. BUN has not risen Suspect the decrease in H/H reflects equilibration, with initial Hgb from yesterday reflecting hemocontration following bowel preparation as opposed to blood loss from bleeding. Will continue to monitor for now. Repeat CBC ordered for 1pm ASA held for now and protonix 40mg daily started Monitor for overt bleeding Advance to full liquids for lunch Code(s): D64.9 - ANEMIA, UNSPECIFIED Qualifiers: Iron deficiency anemia type: chronic blood loss
[2019-04-23 16:12] LABS: HEMATOCRIT 27.4 % (35.4-49); HEMOGLOBIN 9.1 GM/dL (11.7-16.9); MCH 31.3 pg (25.7-33.7); MCHC 33.3 g/dl (32.0-35.9); MEAN CELL VOLUME 93.9 fl (80-96); MEAN PLT VOLUME 7.4 fl (7.5-11.1); PLATELET COUNT 153 K/MM3 (134-434); RBC 2.91 M/mm3 (4.00-5.60); RDW 18.8 % (11.9-15.9); WHITE BLOOD COUNT 3.5 K/mm3 (4.0-10.0)
--- NOTE | 2019-04-23 22:27 | PN ---
Progress Note, Physician History of Present Illness: Pt w/o abd pain, BM, BRBPR, CP, palpitations, SOB. Pt tolerating PO fluids, spent most of the day in bed, slightly weak. - Current Medication List Current Medications: Active Medications Carvedilol (Coreg -) 12.5 mg PO BID [facility] Last Admin: 04/23/19 10:10 Dose: 6.25 mg Ezetimibe (Zetia -) 10 mg PO Q2D [facility] Isosorbide Mononitrate (Imdur -) 30 mg PO DAILY [facility] Last Admin: 04/23/19 10:10 Dose: 30 mg Multivitamins/Minerals/Vitamin C (Tab-A-Vit -) 1 tab PO DAILY [facility] Last Admin: 04/23/19 10:10 Dose: 1 tab Nitroglycerin (Nitrostat -) 0.4 mg SL PRN PRN PRN Reason: pain Pantoprazole Sodium (Protonix -) 40 mg PO DAILY [facility] Last Admin: 04/23/19 10:10 Dose: 40 mg Ranolazine (Ranexa -) 1,000 mg PO BID [facility] Last Admin: 04/23/19 10:10 Dose: 1,000 mg Rosuvastatin Calcium (Crestor -) 40 mg PO HS [facility] Last Admin: 04/22/19 21:37 Dose: 40 mg Sacubitril/Valsartan (Entresto 24 Mg-26 Mg Tablet) 1 tab PO BID [facility] Last Admin: 04/23/19 10:11 Dose: 1 tab - Objective Vital Signs: Vital Signs Temperature 97.8 F 04/23/19 18:00 Pulse Rate 80 04/23/19 18:00 Respiratory Rate 20 04/23/19 18:00 Blood Pressure 135/79 04/23/19 18:00 O2 Sat by Pulse Oximetry (%) 99 04/23/19 14:00 Constitutional: Yes: No Distress, Calm Cardiovascular: Yes: Regular Rate and Rhythm, S1, S2 Respiratory: Yes: Regular, CTA Bilaterally. No: Rales Gastrointestinal: Yes: Normal Bowel Sounds, Soft. No: Tenderness Edema: No Neurological: Yes: Alert, Oriented Labs: CBC, BMP 04/23/19 16:04 04/23/19 08:18 Problem List - Problems (1) Gastrointestinal bleed Code(s): K92.2 - GASTROINTESTINAL HEMORRHAGE, UNSPECIFIED Qualifiers: GI bleed type/associated pathology: melena Qualified Code(s): K92.1 - Melena (2) Anemia Code(s): D64.9 - ANEMIA, UNSPECIFIED Qualifiers: Iron deficiency anemia type: chronic blood loss (3) Hx of CABG Code(s): Z95.1 - PRESENCE OF AORTOCORONARY BYPASS GRAFT (4) CHF (congestive heart failure) Code(s): I50.9 - HEART FAILURE, UNSPECIFIED (5) CRF (chronic renal failure) Code(s): N18.9 - CHRONIC KIDNEY DISEASE, UNSPECIFIED (6) Coronary artery disease Code(s): I25.10 - ATHSCL HEART DISEASE OF [place] CORONARY ARTERY W/O ANG PCTRS Qualifiers: Coronary Disease-Associated Artery/Lesion type: [place] artery [place] vs. transplanted heart: [place] heart Associated angina: without angina Qualified Code(s): I25.10 - Atherosclerotic heart disease of [place] coronary artery without angina pectoris Assessment/Plan S/p EGD and colonoscopy yesterday, with bleed from the stomach. Hb dropped this morning (8.7), repeated this late afternoon is trending up. Clear liquid diet. ASA on hold Started on Protonix. To monitor BP, HR. Pt's condition was d/w Dr Medina. Pt's condition was d/w pt's nurse. If not signs or symptoms of bleeding consider DC home tomorrow.
[2019-04-23] MEDS ORDERED: PT OWN MED DRAWER 7, Y5N ONE (22:41)
[2019-04-23] MEDS: ROSUVASTATIN CA 20 MG TABLET (FP) PO SCH (22:45)
[2019-04-24] MEDS ORDERED: PT OWN MED DRAWER 7, Y5N ONE ×3 (07:45→11:16)
[2019-04-24] MEDS ORDERED: EZETIMIBE 10 MG TABLET (FP) PO SCH (10:00)
[2019-04-24] MEDS: CARVEDILOL 12.5 MG TABLET (FP) PO SCH (10:24)
[2019-04-24] MEDS: MULTIVITAMINS (DAILY MVI) TABLET (FP) PO SCH (10:27)
[2019-04-24] MEDS: ISOSORBIDE MONONITRATE 30 MG TAB.SR.24H (FP) PO SCH (10:27)
[2019-04-24] MEDS: RANOLAZINE E.R. 500 MG TABLET (FP) PO SCH (10:30)
[2019-04-24] MEDS: PANTOPRAZOLE 40 MG TABLET PO SCH (10:30)
[2019-04-24] MEDS: SACUBITRIL/VALSARTAN 24 MG-26 MG TABLET PO SCH (10:32)
--- NOTE | 2019-04-24 10:45 | DS ---
Physical Examination Vital Signs: Vital Signs Temperature 98.5 F 04/24/19 06:00 Pulse Rate 72 04/24/19 06:00 Respiratory Rate 20 04/24/19 06:00 Blood Pressure 104/52 L 04/24/19 06:00 O2 Sat by Pulse Oximetry (%) 98 04/24/19 06:00 Findings/Remarks: Pt w/o abd pain, nausea, vomiting, BRRPR, BM. Pt w/o SOB, CP, palpitations. Constitutional: Yes: No Distress, Calm Cardiovascular: Yes: Regular Rate and Rhythm, S1, S2 Respiratory: Yes: Regular, CTA Bilaterally. No: Rales Gastrointestinal: Yes: Normal Bowel Sounds, Soft. No: Tenderness Edema: No Neurological: Yes: Alert, Oriented Labs: CBC, BMP 04/23/19 16:04 04/23/19 08:18 Discharge Summary Reason For Visit: IRON DEFICIENCY ANEMIA, UNSPECIFIED Procedures: Principal: EGD. Colonoscopy Hospital Course: Pt come for outpatient EGD and colonoscopy with Dr Hermilo Medina, found to have GIB (required epinephrine injection and metal clip placement to stop the bleeeding), was admitted for observation; his H/H dropped in the morning after procedure; repeated H/H later in the day showed a stable H/H (slightly up). Pt' s ASA was held (for few days) and pt was started on Protonix. Pt to be DC'ed home with outpatient follow-up. Plan of Treatment: Full liquid diet today Puree diet starting tomorrow, for two days; then adnaced diet as tolerated. Restart ASA on . No NSAIDs use. Use Tylenol for pain. Condition: Improved - Instructions Diet, Activity, Other Instructions: as above Referrals: Yann Medina DO [Staff Physician] - (in 1-2 weeks) Humberto Mcpherson MD [Staff Physician] - (in 1-2 weeks ) Jose Daniel Laird MD [Staff Physician] - (as scheduled. ) Disposition: HOME - Home Medications Comprehensive Discharge Medication List: Ambulatory Orders Nitroglycerin Sublingual [Nitrostat -] 0.4 mg SL PRN PRN 09/28/12 Rosuvastatin [Crestor -] 40 mg PO HS 09/28/12 Aspirin [ASA -] 81 mg PO DAILY 03/07/19 Carvedilol [Coreg -] 12.5 mg PO BID 03/07/19 Cholecalciferol (Vitamin D3) [Vitamin D3] 2,000 unit PO DAILY 03/07/19 Ezetimibe 10 mg PO Q2D 03/07/19 Isosorbide Mononitrate [Isosorbide Mononitrate ER] 30 mg PO DAILY 03/07/19 Multivitamin [One-Daily Multi-Vitamin] 1 each PO DAILY 03/07/19 Ranolazine [Ranexa -] 1,000 mg PO BID 03/07/19 Sacubitril/Valsartan [Entresto 24 mg-26 mg Tablet] 1 each PO BID 03/07/19
--- NOTE | 2019-04-24 11:04 | DS ---
Physical Examination Vital Signs: Vital Signs Temperature 98.5 F 04/24/19 06:00 Pulse Rate 72 04/24/19 06:00 Respiratory Rate 20 04/24/19 06:00 Blood Pressure 104/52 L 04/24/19 06:00 O2 Sat by Pulse Oximetry (%) 98 04/24/19 06:00 Labs: CBC, BMP 04/23/19 16:04 04/23/19 08:18 Discharge Summary Reason For Visit: IRON DEFICIENCY ANEMIA, UNSPECIFIED - Instructions - Home Medications Comprehensive Discharge Medication List: Ambulatory Orders Nitroglycerin Sublingual [Nitrostat -] 0.4 mg SL PRN PRN 09/28/12 Rosuvastatin [Crestor -] 40 mg PO HS 09/28/12 Aspirin [ASA -] 81 mg PO DAILY 03/07/19 Carvedilol [Coreg -] 12.5 mg PO BID 03/07/19 Cholecalciferol (Vitamin D3) [Vitamin D3] 2,000 unit PO DAILY 03/07/19 Ezetimibe 10 mg PO Q2D 03/07/19 Isosorbide Mononitrate [Isosorbide Mononitrate ER] 30 mg PO DAILY 03/07/19 Multivitamin [One-Daily Multi-Vitamin] 1 each PO DAILY 03/07/19 Ranolazine [Ranexa -] 1,000 mg PO BID 03/07/19 Sacubitril/Valsartan [Entresto 24 mg-26 mg Tablet] 1 each PO BID 03/07/19
[2019-04-24 11:09] VITALS: BP 125/68; PULSE 76; TEMP 97.7
--- NOTE | 2019-04-25 15:40 | PATH ---
Surgical Pathology Report Patient Name: GEOVANNI FINE [facility]. Rec. #: [id number] /Age/Gender: 1930 (Age: 88) / M Account: [id number] Location: [address] [place] [address] Taken: 04/22/2019 Received: 04/22/2019 Reported: 04/25/2019 Physicians: Xavier Ramirez D.O. Specimen(s) Received A: BODY B: DISTAL ESOPHAGUS C: TRANSVERSE COLON POLYP D: PROXIMAL TRANSVERSE POLYP E: ASCENDING COLON POLYPS Clinical History Anemia Postoperative diagnosis: Ruby's esophagus, duodenitis, bleeding vessel, AVMs, colon diverticuli, colon polyps Final Diagnosis A. STOMACH, BODY, BIOPSY: GASTRIC BODY MUCOSA WITH MILD CHRONIC GASTRITIS. IMMUNOHISTOCHEMICAL STAIN FOR H. PYLORI IS NEGATIVE. B. 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 NO DYSPLASIA IDENTIFIED. BACKGROUND OF ABUNDANT SQUAMOCOLUMNAR MUCOSA WITH MILD CHRONIC INFLAMMATION AND CHANGES OF MODERATE REFLUX ESOPHAGITIS. C. TRANSVERSE COLON, POLYP, POLYPECTOMY: TUBULAR ADENOMA. D. PROXIMAL TRANSVERSE COLON, POLYP, POLYPECTOMY: TUBULAR ADENOMA. E. ASCENDING COLON, POLYPS, POLYPECTOMY: TUBULAR ADENOMA(S). Electronically Signed Ashley Baltazar M.D. Gross Description A. Received in formalin, labeled "biopsy body of stomach" are 2 lawson, irregular portions of soft tissue measuring 0.2 and 0.4 cm. in greatest dimension. The specimens are submitted in toto in one cassette. B. Received in formalin, labeled "biopsy Ruby's esophagus" are 4 lawson, irregular portions of soft tissue ranging from 0.2-0.4 cm. in greatest dimension. The specimens are submitted in toto in one cassette. C. Received in formalin, labeled "biopsy transverse colon" is a lawson, irregular portion of soft tissue measuring 0.4 cm. in greatest dimension. The specimen is submitted in toto in one cassette. D. Received in formalin, labeled "proximal transverse colon" is a lawson, irregular portion of soft tissue measuring 0.4 cm. in greatest dimension. The specimen is submitted in toto in one cassette. E. Received in formalin, labeled "ascending colon" are 2 lawson, irregular portions of soft tissue averaging 0.5 cm. in greatest dimension. The specimens are submitted in toto in one cassette. 04/22/2019 [facility]04/22/2019
== END 2019-04-24 11:19 | disposition home or self-care (01) ==
LOC: JASU-ENDO 08:01 → J5S 14:29
PROVIDERS: ADMIT Specialist; ATTEND Specialist
PROC: 0DB68ZX Excision of Stomach, Via Natural or Artificial Opening Endoscopic, Diagnostic (ICD-10-PCS; 2019-04-22)
PROC: 0W3P8ZZ Control Bleeding in Gastrointestinal Tract, Via Natural or Artificial Opening Endoscopic (ICD-10-PCS; 2019-04-22)
PROC: 3E0G8TZ Introduction of Destructive Agent into Upper GI, Via Natural or Artificial Opening Endoscopic (ICD-10-PCS; 2019-04-22)
PROC: 0D548ZZ Destruction of Esophagogastric Junction, Via Natural or Artificial Opening Endoscopic (ICD-10-PCS; 2019-04-22)
PROC: 0DBK8ZX Excision of Ascending Colon, Via Natural or Artificial Opening Endoscopic, Diagnostic (ICD-10-PCS; 2019-04-22)
PROC: 0DBL8ZX Excision of Transverse Colon, Via Natural or Artificial Opening Endoscopic, Diagnostic (ICD-10-PCS; 2019-04-22)
PROC: 0DB38ZX Excision of Lower Esophagus, Via Natural or Artificial Opening Endoscopic, Diagnostic (ICD-10-PCS; principal; 2019-04-22 09:00)
DX: K31.811 Angiodysplasia of stomach and duodenum with bleeding (principal); K22.70 Barrett's esophagus without dysplasia; K21.0 Gastro-esophageal reflux disease with esophagitis; K29.80 Duodenitis without bleeding; K31.4 Gastric diverticulum; K92.1 Melena; D50.0 Iron deficiency anemia secondary to blood loss (chronic); N18.9 Chronic kidney disease, unspecified; D12.3 Benign neoplasm of transverse colon; D12.2 Benign neoplasm of ascending colon; K57.30 Diverticulosis of large intestine without perforation or abscess without bleeding; K64.8 Other hemorrhoids; I11.0 Hypertensive heart disease with heart failure; E78.5 Hyperlipidemia, unspecified; I25.10 Atherosclerotic heart disease of native coronary artery without angina pectoris; I50.9 Heart failure, unspecified; M19.90 Unspecified osteoarthritis, unspecified site; Z95.1 Presence of aortocoronary bypass graft; Z87.891 Personal history of nicotine dependence; Z79.82 Long term (current) use of aspirin
CPT/HCPCS: 36415; 80048; 85025; 85027; 88305-TC; 88342-TC; G0378

== ENCOUNTER 2019-04-28 05:33 | Day surgery (SDC) | payer OTHER, MEDICARE ==
[2019-04-28] MEDS ORDERED: CYANOCOBALAMIN (VITAMIN B-12) 1000 MCG/1 ML VIAL IM ONE (09:00)
[2019-04-28] MEDS ORDERED: IRON SUCROSE INJECTION 200 MG in SODIUM CHLORIDE 100 ML IVPB ONE (09:00)
[2019-04-28] MEDS ORDERED: ACETAMINOPHEN 325 MG TABLET (FP) PO ONE (09:00)
[2019-04-28 11:08] LABS: BASO % 0.7 % (0-2.0); EOS % 0.8 % (0-4.5); HEMATOCRIT 27.6 % (35.4-49); HEMOGLOBIN 9.1 GM/dL (11.7-16.9); MCH 30.8 pg (25.7-33.7); MEAN CELL VOLUME 93.4 fl (80-96); MEAN PLT VOLUME 8.1 fl (7.5-11.1); MONO % 12.8 % (3.8-10.2); NEUT % 63.7 % (42.8-82.8); PLATELET COUNT 146 K/MM3 (134-434); RBC 2.96 M/mm3 (4.00-5.60); RDW 18.9 % (11.9-15.9); WHITE BLOOD COUNT 2.6 K/mm3 (4.0-10.0)
[2019-04-28 11:59] LABS: ALBUMIN 2.5 g/dl (3.4-5.0); BILIRUBIN,TOTAL 0.6 mg/dL (0.2-1); BLOOD UREA NITROGEN 13.8 mg/dL (7-18); CREATININE 1.1 mg/dL (0.55-1.3); MAGNESIUM 1.3 mg/dL (1.8-2.4); POTASSIUM 3.6 mmol/L (3.5-5.1); TOT PROT 5.2 g/dl (6.4-8.2)
[2019-04-28 12:07] LABS: CALCIUM 6.9 mg/dL (8.5-10.1)
[2019-04-28 17:30] VITALS: TEMP 98.1
[2019-04-28 17:33] VITALS: BP 129/53; PULSE 59
== END 2019-04-28 11:40 | disposition home or self-care (01) ==
LOC: JONCNONCHE 05:33 → J7W 10:10 → JONCNONCHE 11:40
PROVIDERS: ATTEND Internal Medicine Hematology & Oncology
PROC: 3E033GC Introduction of Other Therapeutic Substance into Peripheral Vein, Percutaneous Approach (ICD-10-PCS; principal; 2019-04-28)
DX: D50.9 Iron deficiency anemia, unspecified (principal)
CPT/HCPCS: 36415; 80053; 82728; 83540; 83550; 83735; 85025; 96365; J1756

== ENCOUNTER 2019-05-05 05:29 | Day surgery (SDC) | payer OTHER, MEDICARE ==
[2019-05-05] MEDS ORDERED: CYANOCOBALAMIN (VITAMIN B-12) 1000 MCG/1 ML VIAL SQ ONE (10:15)
[2019-05-05] MEDS ORDERED: IRON SUCROSE INJECTION 200 MG in SODIUM CHLORIDE 100 ML IVPB ONE (10:15)
[2019-05-05 10:52] LABS: HEMATOCRIT 26.4 % (35.4-49); HEMOGLOBIN 8.9 GM/dL (11.7-16.9); MCH 31.8 pg (25.7-33.7); MCHC 33.6 g/dl (32.0-35.9); MEAN CELL VOLUME 94.7 fl (80-96); MEAN PLT VOLUME 8.3 fl (7.5-11.1); PLATELET COUNT 137 K/MM3 (134-434); RBC 2.79 M/mm3 (4.00-5.60); RDW 18.8 % (11.9-15.9); WHITE BLOOD COUNT 2.5 K/mm3 (4.0-10.0)
[2019-05-05 11:25] LABS: ALBUMIN 3.2 g/dl (3.4-5.0); BILIRUBIN,TOTAL 0.6 mg/dL (0.2-1); BLOOD UREA NITROGEN 16.5 mg/dL (7-18); CALCIUM 8.6 mg/dL (8.5-10.1); CREATININE 1.2 mg/dL (0.55-1.3); MAGNESIUM 2.2 mg/dL (1.8-2.4); POTASSIUM 4.4 mmol/L (3.5-5.1); TOT PROT 6.2 g/dl (6.4-8.2)
[2019-05-05 14:15] VITALS: TEMP 98
[2019-05-05 14:17] VITALS: BP 133/63; PULSE 67
== END 2019-05-05 11:40 | disposition home or self-care (01) ==
LOC: JONCNONCHE 05:29 → J7W 09:52 → JONCNONCHE 11:40
PROVIDERS: ATTEND Internal Medicine Hematology & Oncology
PROC: 3E033GC Introduction of Other Therapeutic Substance into Peripheral Vein, Percutaneous Approach (ICD-10-PCS; principal; 2019-05-05)
DX: D50.9 Iron deficiency anemia, unspecified (principal); D51.9 Vitamin B12 deficiency anemia, unspecified
CPT/HCPCS: 36415; 80053; 83735; 85027; 96365; J1756

== ENCOUNTER 2019-05-12 10:19 | Day surgery (SDC) | payer OTHER, MEDICARE ==
[2019-05-12 11:19] LABS: BASO % 0.7 % (0-2.0); EOS % 1.5 % (0-4.5); HEMATOCRIT 28.3 % (35.4-49); HEMOGLOBIN 9.4 GM/dL (11.7-16.9); LYMPH % 21.5 % (8-40); MCH 31.9 pg (25.7-33.7); MCHC 33.3 g/dl (32.0-35.9); MEAN CELL VOLUME 95.6 fl (80-96); MEAN PLT VOLUME 8.1 fl (7.5-11.1); NEUT % 65.3 % (42.8-82.8); PLATELET COUNT 155 K/MM3 (134-434); RBC 2.96 M/mm3 (4.00-5.60); RDW 19.4 % (11.9-15.9); WHITE BLOOD COUNT 2.5 K/mm3 (4.0-10.0)
[2019-05-12] MEDS ORDERED: IRON SUCROSE INJECTION 200 MG in SODIUM CHLORIDE 100 ML IVPB ONE (11:30)
[2019-05-12 11:53] LABS: ALBUMIN 3.4 g/dl (3.4-5.0); BILIRUBIN,TOTAL 0.6 mg/dL (0.2-1); BLOOD UREA NITROGEN 17.1 mg/dL (7-18); CALCIUM 8.7 mg/dL (8.5-10.1); CREATININE 1.3 mg/dL (0.55-1.3); MAGNESIUM 2.1 mg/dL (1.8-2.4); POTASSIUM 4.2 mmol/L (3.5-5.1); TOT PROT 6.6 g/dl (6.4-8.2)
[2019-05-12] MEDS ORDERED: CYANOCOBALAMIN (VITAMIN B-12) 1000 MCG/1 ML VIAL IM ONE (12:30)
[2019-05-12 14:40] VITALS: BP 126/46; PULSE 76; TEMP 98.1
== END 2019-05-12 12:55 | disposition home or self-care (01) ==
LOC: JONCNONCHE 10:19 → J7W 10:38 → JONCNONCHE 12:55
PROVIDERS: ATTEND Internal Medicine Hematology & Oncology
PROC: 3E033GC Introduction of Other Therapeutic Substance into Peripheral Vein, Percutaneous Approach (ICD-10-PCS; principal; 2019-05-12)
DX: D50.9 Iron deficiency anemia, unspecified (principal); D51.9 Vitamin B12 deficiency anemia, unspecified; Z85.828 Personal history of other malignant neoplasm of skin; I25.10 Atherosclerotic heart disease of native coronary artery without angina pectoris; Z95.810 Presence of automatic (implantable) cardiac defibrillator; Z95.1 Presence of aortocoronary bypass graft
CPT/HCPCS: 36415; 80053; 82728; 83540; 83550; 83735; 85025; 96365; J1756

== ENCOUNTER 2020-08-10 04:15 | Day surgery (SDC) | payer OTHER, MEDICARE ==
[2020-08-09 19:12] VITALS: BMI 21.2
[2020-08-10] MEDS ORDERED: DEXAMETHASONE SOD PHOSPHATE/PF 10 MG/ML SDV ONE (07:23)
[2020-08-10] MEDS ORDERED: LIDOCAINE HCL/PF 1% SDV 5ML VIAL ONE (07:28)
[2020-08-10] MEDS ORDERED: LIDOCAINE HCL 1% PRESERVATIVE FREE - 30ML VIAL IJ ONE (12:41)
[2020-08-10] MEDS ORDERED: TRIAMCINOLONE ACET 40MG/1ML VIAL IM ONE (12:42)
[2020-08-10] MEDS ORDERED: IOHEXOL 180 MG/1 ML ML IJ ONE (12:43)
[2020-08-10] MEDS ORDERED: BUPIVACAINE HCL/PF 2.5 MG/ML - 30 ML VIAL IJ ONE (12:44)
[2020-08-10 15:47] VITALS: BP 140/72; PULSE 66; TEMP 98
== END 2020-08-10 13:45 | disposition home or self-care (01) ==
LOC: JASU-SURG 04:15
PROVIDERS: ATTEND Pain Medicine Pain Medicine
PROC: 3E0U3BZ Introduction of Anesthetic Agent into Joints, Percutaneous Approach (ICD-10-PCS; 2020-08-10)
PROC: 3E0U33Z Introduction of Anti-inflammatory into Joints, Percutaneous Approach (ICD-10-PCS; 2020-08-10)
PROC: 3E0U3BZ Introduction of Anesthetic Agent into Joints, Percutaneous Approach (ICD-10-PCS; 2020-08-10)
PROC: 3E0U33Z Introduction of Anti-inflammatory into Joints, Percutaneous Approach (ICD-10-PCS; principal; 2020-08-10 12:30)
DX: M53.3 Sacrococcygeal disorders, not elsewhere classified (principal)
CPT/HCPCS: 76000-TC-FY

== ENCOUNTER 2020-08-24 04:48 | Day surgery (SDC) | payer OTHER, MEDICARE ==
[2020-08-23 17:19] VITALS: BMI 21.2
[2020-08-24] MEDS ORDERED: DEXAMETHASONE SOD PHOSPHATE 10 MG/1 ML VIAL ONE (07:31)
[2020-08-24] MEDS ORDERED: IOHEXOL 180 MG/1 ML ML IJ ONE (12:52)
[2020-08-24] MEDS ORDERED: LIDOCAINE HCL 1% PRESERVATIVE FREE - 30ML VIAL IJ ONE (12:53)
[2020-08-24] MEDS ORDERED: DEXAMETHASONE SOD PHOSPHATE 10 MG/1 ML VIAL IM ONE (12:56)
[2020-08-24 13:34] VITALS: TEMP 98.4
[2020-08-24 14:59] VITALS: BP 165/79; PULSE 72
== END 2020-08-24 13:53 | disposition home or self-care (01) ==
LOC: JASU-SURG 04:48
PROVIDERS: ATTEND Pain Medicine Pain Medicine
PROC: 3E0R33Z Introduction of Anti-inflammatory into Spinal Canal, Percutaneous Approach (ICD-10-PCS; 2020-08-24)
PROC: B01BYZZ Fluoroscopy of Spinal Cord using Other Contrast (ICD-10-PCS; 2020-08-24)
PROC: 3E0R3BZ Introduction of Anesthetic Agent into Spinal Canal, Percutaneous Approach (ICD-10-PCS; principal; 2020-08-24 13:00)
DX: M54.16 Radiculopathy, lumbar region (principal)
CPT/HCPCS: 76000-TC-FY; J1100